=== PATIENT | female | born 1980 ===

== ENCOUNTER 2018-05-02 08:51 | Inpatient (IN) | payer OTHER ==
[~2018-05-02] VITALS: Ht 162.6 cm; Wt 66.7 kg
[2018-05-02] MEDS ORDERED: CARAFATE1 GM (09:04)
[2018-05-02] MEDS ORDERED: ZANTAC300 MG (09:04)
[2018-05-02] MEDS ORDERED: LEVSIN/SL0.125 MG (09:04)
== END 2018-05-05 20:01 | disposition home or self-care (01) | DRG 392 ==
LOC: ER 08:51 → MEDJ 22:13
PROVIDERS: ADMIT Internal Medicine
PROC: BW40ZZZ Ultrasonography of Abdomen (ICD-10-PCS; principal; 2018-05-02)
PROC: BF37ZZZ Magnetic Resonance Imaging (MRI) of Pancreas (ICD-10-PCS; 2018-05-02)
PROC: CF1C1ZZ Planar Nuclear Medicine Imaging of Hepatobiliary System, All using Technetium 99m (Tc-99m) (ICD-10-PCS; 2018-05-03)
DX: R10.11 Right upper quadrant pain (principal); R10.13 Epigastric pain

== ENCOUNTER 2019-04-28 08:20 | Outpatient (CLI) | payer OTHER ==
[~2019-04-28 08:20] MED LIST: CARAFATE1 GM; LEVSIN/SL0.125 MG; ZANTAC300 MG
== END 2019-04-28 08:27 | disposition home or self-care (01) ==
LOC: MRI 08:20
DX: R74.0 Nonspecific elevation of levels of transaminase and lactic acid dehydrogenase [LDH] (principal); R93.3 Abnormal findings on diagnostic imaging of other parts of digestive tract; K83.1 Obstruction of bile duct
CPT/HCPCS: 74181

== ENCOUNTER 2019-08-26 11:05 | Day surgery (SDC) | payer OTHER ==
[~2019-08-26 11:05] MED LIST changes: +PROTONIX20 MG PO; +VITAMIN D310 MCG/1 M PO
[2019-08-26] MEDS ORDERED: PERCOCET 5-3251 EACH PO (15:33)
== END 2019-08-26 19:00 | disposition home or self-care (01) ==
LOC: CIR.AMB 11:05 → ADM 11:30 → CIR.AMB 19:00
PROVIDERS: ATTEND Surgery
DX: K80.10 Calculus of gallbladder with chronic cholecystitis without obstruction (principal)